=== PATIENT | male | born 1975 | race Asian ===

== ENCOUNTER 2024-10-19 13:36 | Outpatient (REF) | payer OTHER, SELFPAY ==
[2024-10-19 15:44] LABS: Erythrocyte Sedimentation Rate 10 MM/HR (0-15)
[2024-10-25 22:33] LABS: Lyme Abs Screen <0.90 index
== END 2024-10-19 13:37 | disposition home or self-care (01) ==
LOC: HO.LAB 13:36
PROVIDERS: PCP Nurse Practitioner Primary Care; Visit Provider Psychiatry & Neurology Neurology
DX: G44.229 Chronic tension-type headache, not intractable (principal)
CPT/HCPCS: 36415; 85652; 86617; 86618